=== PATIENT | female | born 1970 | race Hispanic/Latino ===

== ENCOUNTER 2018-07-25 15:59 | Emergency (ER) | payer OTHER ==
[2018-07-25] MEDS ORDERED: ONDANSETRON HCL 4 MG/2 ML VIAL ONE (16:44)
[2018-07-25] MEDS ORDERED: SODIUM CHLORIDE 0.9% 1000ML 1,000 ML IV ONE (16:44)
[2018-07-25] MEDS ORDERED: KETOROLAC TROMETHAMINE 30MG/ML ONE (16:45)
[2018-07-25 16:56] LABS: BASOPHILS % (AUTO) 0.6 % (0.0-5.0); EOSINOPHILS % (AUTO) 0.3 % (0.0-8.0); HEMATOCRIT 34.6 % (36-48); LYMPHOCYTES % (AUTO) 7.8 % (21.0-51.0); MEAN CORPUSCULAR HGB CONC 34.6 g/dL (32.0-36.0); MEAN CORPUSCULAR VOLUME 92.6 fL (79-99); MONOCYTES % (AUTO) 2.2 % (3.0-13.0); NEUTROPHILS % (AUTO) 89.1 % (40.0-77.0); PLATELET COUNT (AUTO) 248 K/uL (130-400); RED BLOOD CELL COUNT(AUTO) 3.74 MIL/uL (4.00-5.50); WHITE BLOOD COUNT (AUTO) 12.2 K/uL (4.8-10.8)
[2018-07-25 16:57] LABS: APPEARANCE,URINE Clear (CLEAR); BILIRUBIN,URINE Negative (NEGATIVE); COLOR,URINE Yellow (YELLOW); GLUCOSE, URINE (UA) >=1000 mg/dL (NEGATIVE); KETONES,URINE 40 mg/dL (NEGATIVE); LEUKOCYTE ESTERASE ,URINE Negative (NEGATIVE); NITRATE,URINE Negative (NEGATIVE); OCCULT BLOOD,URINE Moderate (NEGATIVE); PROTEIN,URINE Trace (NEGATIVE); UROBILINOGEN,URINE 0.2 mg/dL (0.2-1.0)
[2018-07-25 17:06] LABS: CREATININE 0.7 mg/dL (0.5-1.5); POTASSIUM 3.9 mmol/L (3.5-5.1)
[2018-07-25 17:09] LABS: BACTERIA,URINE Rare /HPF (None Seen); WBC,URINE 0-1 /HPF (0-1)
[2018-07-25 17:10] LABS: ALBUMIN 3.6 g/dL (3.5-5.0); BILIRUBIN,TOTAL 0.4 mg/dL (0.2-1.0); TOTAL PROTEIN, SERUM 8.1 g/dL (6.0-8.3)
[2018-07-25 17:10] LABS: SQUAMOUS EPITHELIAL CELL,UR Few /HPF (0-2)
[2018-07-25] MEDS ORDERED: IOHEXOL-350 75 ML VIAL IV ONE (18:22)
[2018-07-25] MEDS ORDERED: DiphenhydrAMINE HCL 50 MG/ML VIAL ONE (19:17)
[2018-07-25] MEDS ORDERED: METOCLOPRAMIDE 10 MG/2 ML VIAL ONE (19:17)
== END 2018-07-25 20:05 | disposition home or self-care (01) ==
LOC: EDH 15:59
DX: G43.909 Migraine, unspecified, not intractable, without status migrainosus (principal); R11.2 Nausea with vomiting, unspecified; R10.84 Generalized abdominal pain; E11.65 Type 2 diabetes mellitus with hyperglycemia; I10 Essential (primary) hypertension
CPT/HCPCS: 36415; 74177; 80053; 81001; 82150; 83690; 85025; 96361; 96374; 96375 ×2; 99285; J1200; J1885; J2405; J2765; J7030; Q9967